=== PATIENT | male | born 1975 | race Caucasian/White ===

== ENCOUNTER 2019-01-08 15:57 | Emergency (ER) | payer OTHER ==
[~2019-01-08] VITALS: Ht 167.6 cm; Wt 83.9 kg
[2019-01-08] MEDS ORDERED: IBUPROFEN200 M1 PO (16:10)
--- NOTE | 2019-01-09 21:42 | EKG ---
[facility] [address] [facility] [place], [place] [address] Signed Normal sinus rhythm Normal ECG No previous ECGs available Confirmed by BRIAN COHEN DO ([id number]) on 01/09/2019 9:42:34 PM Electronically Signed By: BRIAN COHEN DO 01/09/19 2142 PATIENT NAME: SERA MCQUEEN [facility] Electrocardiogram DATE OF : 79 PHYSICIAN: BRIAN COHEN DO REPORT #: [id number] REPORT IS CONFIDENTIAL AND NOT TO BE RELEASED WITHOUT AUTHORIZATION
== END 2019-01-08 17:40 | disposition home or self-care (01) ==
LOC: ED 15:57
DX: R07.89 Other chest pain (principal)
CPT/HCPCS: 71045; 80053; 84484; 85025; 93005; 93010; 99285-25